=== PATIENT | male | born 1965 | race Asian ===

== ENCOUNTER → 2017-08-17 | Outpatient (CLI) | payer OTHER ==
[~2017-08-17] VITALS: Ht 177.8 cm; Wt 79.0 kg
[~2017-08-17] MED LIST: ACET-48 PO; ALBU8.5H3 IH; ATOR10TA69 PO; BECL8.7A6 IH; CARV6.2534 PO; FURO20 PO; IBUP-2070 PO; LEVE250T PO; LISI-660 PO; LISI10TA7 PO; MAGN400C PO; PHEN100C23 PO; SPIR25TA6 PO
[2017-08-17 11:34] VITALS: BP 111/84
== END | disposition home or self-care (01) ==
LOC: SRCNTR 11:32
PROVIDERS: ATTEND Internal Medicine Clinical Cardiac Electrophysiology
DX: Z45.02 Encounter for adjustment and management of automatic implantable cardiac defibrillator (principal); I11.0 Hypertensive heart disease with heart failure; I50.22 Chronic systolic (congestive) heart failure; I47.1 Supraventricular tachycardia; E78.5 Hyperlipidemia, unspecified; R56.9 Unspecified convulsions; R55 Syncope and collapse; Z88.0 Allergy status to penicillin
CPT/HCPCS: G0463

== ENCOUNTER → 2017-09-08 | Outpatient (CLI) | payer OTHER ==
[~2017-09-08] VITALS: Ht 177.8 cm; Wt 79.0 kg
[~2017-09-08] MED LIST changes: -LISI-660 PO; +SPIR25TA4 PO; -SPIR25TA6 PO
[2017-09-08 12:16] VITALS: BP 102/69
== END | disposition home or self-care (01) ==
LOC: SRCNTR 09:42
PROVIDERS: ATTEND Internal Medicine Clinical Cardiac Electrophysiology
DX: Z45.02 Encounter for adjustment and management of automatic implantable cardiac defibrillator (principal)
CPT/HCPCS: G0463

== ENCOUNTER 2017-09-10 12:16 | Inpatient (IN) | payer OTHER ==
[~2017-09-10] VITALS: Ht 177.8 cm; Wt 78.5 kg
[~2017-09-10 12:16] MED LIST changes: -LEVE250T PO; -LISI-660 PO
[2017-09-10 12:28] LABS: GLUCOSE,POINT OF CARE 166 MG/DL (70-110)
[2017-09-10] MEDS ORDERED: LEVE250T PO (12:30)
[2017-09-10] MEDS ORDERED: 0.9% SODIUM CHLORIDE 10 ML SYRINGE IVP PRN ×3 (14:15→23:00)
[2017-09-10] MEDS ORDERED: VANCOMYCIN HCL 1 GM/D5% WATER 200 ML IV ONE (14:15)
[2017-09-10] MEDS ORDERED: SODIUM CHLORIDE 0.9% 1,000 ML IV ONE (14:15)
[2017-09-10 15:11] LABS: BASOPHILS % (AUTO) 0.4 % (0.0-2.0); EOSINOPHILS % (AUTO) 2.5 % (1.0-6.0); HEMOGLOBIN 16.7 g/dL (13.5-17.5); LYMPHOCYTES # (AUTO) 2.2 K/uL (1.0-4.8); LYMPHOCYTES % (AUTO) 36.8 % (22.0-44.0); MEAN CORPUSCULAR HEMOGLOBIN 32.3 pg (26.0-34.0); MEAN CORPUSCULAR HGB CONC 34.1 G/dL (31.0-37.0); MEAN CORPUSCULAR VOLUME 95 fL (80-100); MONOCYTES # (AUTO) 0.8 K/uL (0.1-1.0); MONOCYTES % (AUTO) 13.2 % (2.0-9.0); NEUTROPHILS # (AUTO) 2.8 K/uL (1.8-7.7); NEUTROPHILS % (AUTO) 47.1 % (40.0-70.0); PLATELET COUNT (AUTO) 201 K/uL (150-450); RED BLOOD CELL COUNT(AUTO) 5.17 MIL/uL (4.50-5.90); RED CELL DISTRIBUTION WIDTH 14.4 % (11.5-14.5)
[2017-09-10 15:23] LABS: ANION GAP 9 mmol/L (8-16); CALCIUM, TOTAL 8.5 mg/dL (8.8-10.5); CARBON DIOXIDE 29 mmol/L (22-29); CHLORIDE 101 mmol/L (98-107); CREATININE 1.13 mg/dL (0.60-1.30); GLOMERULAR FILTR. RATE CALC > 60 mL/min (>60); GLUCOSE,RANDOM 93 mg/dL (70-110); SODIUM SERUM 139 mmol/L (136-145); UREA NITROGEN, BLOOD 12 mg/dL (7-18)
[2017-09-10 15:38] LABS: ALANINE AMINOTRANSFERASE 34 U/L (12-78); ALBUMIN 3.2 g/dL (3.4-5.0); ALKALINE PHOSPHATASE 62 U/L (46-116); ASPARTATE AMINOTRANSFERASE 20 U/L (15-37); BILIRUBIN,TOTAL 0.5 mg/dL (0.1-1.0); TOTAL PROTEIN, SERUM 7.7 g/dL (6.4-8.2)
[2017-09-10 15:48] LABS: LACTIC ACID 3.2 mmol/L (0.4-2.0)
[2017-09-10 15:50] LABS: APPEARANCE,URINE CLEAR (CLEAR); BILIRUBIN,URINE NEGATIVE (NEGATIVE); GLUCOSE, URINE (UA) 250 mg/dL (NEGATIVE); KETONES,URINE NEGATIVE (NEGATIVE); LEUKOCYTE ESTERASE ,URINE NEGATIVE (NEGATIVE); NITRATE,URINE NEGATIVE (NEGATIVE); OCCULT BLOOD,URINE NEGATIVE (NEGATIVE); PROTEIN,URINE NEGATIVE (NEGATIVE)
[2017-09-10 16:17] LABS: BACTERIA,URINE None Seen /HPF (None Seen); RBC,URINE None Seen /HPF (0-2); SQUAMOUS EPITHELIAL CELL,UR Rare /LPF (None Seen); WBC,URINE None Seen /HPF (0-5)
[2017-09-10] MEDS ORDERED: ACETAMINOPHEN 325 MG TABLET PO PRN (18:30)
[2017-09-10] MEDS ORDERED: ONDANSETRON HCL 4 MG/2 ML VIAL IVP PRN ×2 (18:30→23:00)
[2017-09-10 20:13] VITALS: BP 124/71
[2017-09-10] MEDS ORDERED: ZOLPIDEM TARTRATE 5 MG TABLET PO PRN (23:00)
[2017-09-10] MEDS ORDERED: IPRATROPIUM BROMIDE 0.5 MG/2.5 ML NEB SOLUTION NEB PRN (23:00)
[2017-09-10] MEDS ORDERED: IPRATROPIUM BROMIDE 0.5 MG/2.5 ML NEB SOLUTION NEB SCH (23:00)
[2017-09-10] MEDS ORDERED: ALBUTEROL SULFATE 2.5 MG/0.5 ML NEB SOLUTION NEB SCH (23:00)
[2017-09-10] MEDS ORDERED: ALBUTEROL SULFATE 2.5 MG/0.5 ML NEB SOLUTION NEB PRN (23:00)
[2017-09-10] MEDS: FUROSEMIDE 20 MG TABLET PO SCH (23:01)
[2017-09-10] MEDS: CARVEDILOL 6.25 MG TABLET PO SCH (23:01)
[2017-09-10] MEDS: LevETIRAcetam 500 MG TABLET PO SCH (23:01)
[2017-09-10 23:37] VITALS: BP 123/89
[2017-09-11] VITALS (7 sets, daily range): BP systolic 102–130; BP diastolic 67–96
[2017-09-11] MEDS ORDERED: SODIUM CHLORIDE 0.9% 250 ML IV ONE (00:02)
[2017-09-11] MEDS: VANCOMYCIN HCL 1.25 GM in DEXTROSE 5%-WATER 250 ML IV SCH ×3 (00:11→21:14)
[2017-09-11] MEDS: ALBUTEROL SULFATE 2.5 MG/0.5 ML NEB SOLUTION NEB SCH ×4 (02:00→20:19)
[2017-09-11] MEDS: IPRATROPIUM BROMIDE 0.5 MG/2.5 ML NEB SOLUTION NEB SCH ×4 (02:00→20:19)
[2017-09-11 06:20] LABS: BASOPHILS % (AUTO) 0.5 % (0.0-2.0); EOSINOPHILS % (AUTO) 2.2 % (1.0-6.0); HEMATOCRIT 48.6 % (41-53); HEMOGLOBIN 17.1 g/dL (13.5-17.5); LYMPHOCYTES # (AUTO) 2.4 K/uL (1.0-4.8); LYMPHOCYTES % (AUTO) 33.7 % (22.0-44.0); MEAN CORPUSCULAR HEMOGLOBIN 32.7 pg (26.0-34.0); MEAN CORPUSCULAR HGB CONC 35.1 G/dL (31.0-37.0); MEAN CORPUSCULAR VOLUME 93 fL (80-100); MONOCYTES # (AUTO) 0.9 K/uL (0.1-1.0); NEUTROPHILS # (AUTO) 3.7 K/uL (1.8-7.7); NEUTROPHILS % (AUTO) 51.6 % (40.0-70.0); PLATELET COUNT (AUTO) 191 K/uL (150-450); RED BLOOD CELL COUNT(AUTO) 5.22 MIL/uL (4.50-5.90); RED CELL DISTRIBUTION WIDTH 14.5 % (11.5-14.5)
[2017-09-11 06:42] LABS: ANION GAP 6 mmol/L (8-16); CALCIUM, TOTAL 8.8 mg/dL (8.8-10.5); CARBON DIOXIDE 28 mmol/L (22-29); CHLORIDE 102 mmol/L (98-107); CREATININE 1.11 mg/dL (0.60-1.30); GLOMERULAR FILTR. RATE CALC > 60 mL/min (>60); GLUCOSE,RANDOM 107 mg/dL (70-110); POTASSIUM 3.8 mmol/L (3.5-5.1); SODIUM SERUM 136 mmol/L (136-145); UREA NITROGEN, BLOOD 11 mg/dL (7-18)
[2017-09-11] MEDS: HEPARIN SODIUM,PORCINE 5,000 UNITS/ML VIAL SQ SCH ×4 (08:00→16:00)
[2017-09-11] MEDS: PANTOPRAZOLE SODIUM 40 MG/VIAL IVP SCH (08:12)
[2017-09-11] MEDS: ATORVASTATIN CALCIUM 10 MG TABLET PO SCH (08:12)
[2017-09-11] MEDS: CARVEDILOL 6.25 MG TABLET PO SCH ×2 (08:13→20:46)
[2017-09-11] MEDS: LevETIRAcetam 500 MG TABLET PO SCH ×2 (08:13→20:46)
[2017-09-11] MEDS: SPIRONOLACTONE 25 MG TABLET PO SCH (08:25)
[2017-09-11] MEDS: LISINOPRIL 10 MG TABLET PO SCH (08:25)
[2017-09-11] MEDS: FUROSEMIDE 20 MG TABLET PO SCH ×2 (08:25→20:47)
[2017-09-12] MEDS: ACETAMINOPHEN 500 MG TABLET PO PRN (00:03)
[2017-09-12] MEDS: ALBUTEROL SULFATE 2.5 MG/0.5 ML NEB SOLUTION NEB SCH ×4 (02:37→20:02)
[2017-09-12] MEDS: IPRATROPIUM BROMIDE 0.5 MG/2.5 ML NEB SOLUTION NEB SCH ×4 (02:37→20:02)
[2017-09-12 03:25] VITALS: BP 101/63
[2017-09-12 06:23] LABS: ANION GAP 8 mmol/L (8-16); CALCIUM, TOTAL 8.6 mg/dL (8.8-10.5); CARBON DIOXIDE 27 mmol/L (22-29); CHLORIDE 102 mmol/L (98-107); CREATININE 1.04 mg/dL (0.60-1.30); GLOMERULAR FILTR. RATE CALC > 60 mL/min (>60); GLUCOSE,RANDOM 116 mg/dL (70-110); POTASSIUM 3.9 mmol/L (3.5-5.1); SODIUM SERUM 137 mmol/L (136-145); UREA NITROGEN, BLOOD 10 mg/dL (7-18); VANCOMYCIN,RANDOM 19.8 mcg/mL (25.0-50.0)
[2017-09-12 07:05] VITALS: BP 103/68
[2017-09-12] MEDS: HEPARIN SODIUM,PORCINE 5,000 UNITS/ML VIAL SQ SCH ×4 (08:00→23:40)
[2017-09-12] MEDS: VANCOMYCIN HCL 1.25 GM in DEXTROSE 5%-WATER 250 ML IV SCH ×2 (09:42→20:13)
[2017-09-12] MEDS: CARVEDILOL 6.25 MG TABLET PO SCH ×2 (09:43→20:13)
[2017-09-12] MEDS: PANTOPRAZOLE SODIUM 40 MG/VIAL IVP SCH (09:43)
[2017-09-12] MEDS: LevETIRAcetam 500 MG TABLET PO SCH ×2 (09:43→20:13)
[2017-09-12] MEDS: SPIRONOLACTONE 25 MG TABLET PO SCH (09:43)
[2017-09-12] MEDS: ATORVASTATIN CALCIUM 10 MG TABLET PO SCH (09:43)
[2017-09-12] MEDS: FUROSEMIDE 20 MG TABLET PO SCH ×2 (09:43→20:13)
[2017-09-12] MEDS: LISINOPRIL 10 MG TABLET PO SCH (09:43)
[2017-09-12 11:18] VITALS: BP 116/56
[2017-09-12 15:49] VITALS: BP 115/70
[2017-09-12 19:14] VITALS: BP 123/72
[2017-09-12 23:15] VITALS: BP 106/66
[2017-09-13] MEDS: IPRATROPIUM BROMIDE 0.5 MG/2.5 ML NEB SOLUTION NEB SCH ×4 (02:00→20:00)
[2017-09-13] MEDS: ALBUTEROL SULFATE 2.5 MG/0.5 ML NEB SOLUTION NEB SCH ×4 (02:00→20:00)
[2017-09-13 05:02] VITALS: BP 106/52
[2017-09-13 08:05] LABS: BASOPHILS % (AUTO) 0.4 % (0.0-2.0); EOSINOPHILS % (AUTO) 2.1 % (1.0-6.0); HEMATOCRIT 51.2 % (41-53); HEMOGLOBIN 17.7 g/dL (13.5-17.5); LYMPHOCYTES # (AUTO) 1.8 K/uL (1.0-4.8); LYMPHOCYTES % (AUTO) 20.1 % (22.0-44.0); MEAN CORPUSCULAR HEMOGLOBIN 32.3 pg (26.0-34.0); MEAN CORPUSCULAR HGB CONC 34.5 G/dL (31.0-37.0); MEAN CORPUSCULAR VOLUME 94 fL (80-100); MONOCYTES # (AUTO) 1.1 K/uL (0.1-1.0); MONOCYTES % (AUTO) 12.3 % (2.0-9.0); NEUTROPHILS % (AUTO) 65.1 % (40.0-70.0); PLATELET COUNT (AUTO) 220 K/uL (150-450); RED BLOOD CELL COUNT(AUTO) 5.46 MIL/uL (4.50-5.90); RED CELL DISTRIBUTION WIDTH 14.2 % (11.5-14.5)
[2017-09-13 08:07] VITALS: BP 125/88
[2017-09-13 08:16] LABS: ANION GAP 4 mmol/L (8-16); CALCIUM, TOTAL 8.5 mg/dL (8.8-10.5); CARBON DIOXIDE 28 mmol/L (22-29); CHLORIDE 101 mmol/L (98-107); CREATININE 1.24 mg/dL (0.60-1.30); GLOMERULAR FILTR. RATE CALC > 60 mL/min (>60); GLUCOSE,RANDOM 118 mg/dL (70-110); POTASSIUM 4.1 mmol/L (3.5-5.1); SODIUM SERUM 133 mmol/L (136-145); UREA NITROGEN, BLOOD 14 mg/dL (7-18)
[2017-09-13] MEDS: VANCOMYCIN HCL 1.25 GM in DEXTROSE 5%-WATER 250 ML IV SCH (09:01)
[2017-09-13] MEDS: ATORVASTATIN CALCIUM 10 MG TABLET PO SCH (09:01)
[2017-09-13] MEDS: HEPARIN SODIUM,PORCINE 5,000 UNITS/ML VIAL SQ SCH ×3 (09:01→23:09)
[2017-09-13] MEDS: PANTOPRAZOLE SODIUM 40 MG/VIAL IVP SCH (09:02)
[2017-09-13] MEDS: FUROSEMIDE 20 MG TABLET PO SCH ×2 (09:02→20:40)
[2017-09-13] MEDS: LevETIRAcetam 500 MG TABLET PO SCH ×2 (09:02→20:40)
[2017-09-13] MEDS: CARVEDILOL 6.25 MG TABLET PO SCH ×2 (09:02→20:40)
[2017-09-13] MEDS: SPIRONOLACTONE 25 MG TABLET PO SCH (09:54)
[2017-09-13] MEDS: LISINOPRIL 10 MG TABLET PO SCH (09:54)
[2017-09-13] MEDS: DiphenhydrAMINE HCL 50 MG/ML VIAL IVP SCH ×3 (10:59→23:15)
[2017-09-13 11:13] VITALS: BP 119/71
[2017-09-13] MEDS ORDERED: LEVOFLOXACIN 750 MG/D5% WATER 150 ML IV SCH (12:00)
[2017-09-13] MEDS ORDERED: SODIUM CHLORIDE 0.9% 500 ML IV ONE (13:36)
[2017-09-13 15:24] VITALS: BP 122/76
[2017-09-13] MEDS: ACETAMINOPHEN 500 MG TABLET PO PRN (18:45)
[2017-09-13 19:28] VITALS: BP 107/65
[2017-09-13 20:39] LABS: GLUCOMETER DEV NAME(LOC) 5S 1M; GLUCOSE,POINT OF CARE 161 MG/DL (70-110)
[2017-09-13] MEDS ORDERED: ACETAMINOPHEN 500 MG TABLET PO PRN (21:00)
[2017-09-13] MEDS ORDERED: SODIUM CHLORIDE 0.9% 100 ML ONE (22:01)
[2017-09-13] MEDS: DAPTOMYCIN 500 MG in SODIUM CHLORIDE 0.9% 50 ML IV SCH (22:08)
[2017-09-13] MEDS: CLINDAMYCIN 900 MG/D5% WATER 50 ML IV SCH (23:15)
[2017-09-13 23:25] VITALS: BP 97/65
[2017-09-14] MEDS: ALBUTEROL SULFATE 2.5 MG/0.5 ML NEB SOLUTION NEB SCH ×4 (01:11→19:50)
[2017-09-14] MEDS: IPRATROPIUM BROMIDE 0.5 MG/2.5 ML NEB SOLUTION NEB SCH ×4 (01:11→19:50)
[2017-09-14 03:34] VITALS: BP 112/62
[2017-09-14] MEDS: CLINDAMYCIN 900 MG/D5% WATER 50 ML IV SCH ×3 (06:09→22:20)
[2017-09-14] MEDS: DiphenhydrAMINE HCL 50 MG/ML VIAL IVP SCH ×3 (06:09→18:16)
[2017-09-14 06:24] LABS: BASOPHILS % (AUTO) 0.2 % (0.0-2.0); EOSINOPHILS % (AUTO) 3.2 % (1.0-6.0); HEMATOCRIT 49.2 % (41-53); HEMOGLOBIN 16.9 g/dL (13.5-17.5); LYMPHOCYTES # (AUTO) 1.9 K/uL (1.0-4.8); LYMPHOCYTES % (AUTO) 22.9 % (22.0-44.0); MEAN CORPUSCULAR HEMOGLOBIN 32.2 pg (26.0-34.0); MEAN CORPUSCULAR HGB CONC 34.4 G/dL (31.0-37.0); MEAN CORPUSCULAR VOLUME 94 fL (80-100); MONOCYTES % (AUTO) 12.7 % (2.0-9.0); PLATELET COUNT (AUTO) 213 K/uL (150-450); RED BLOOD CELL COUNT(AUTO) 5.26 MIL/uL (4.50-5.90)
[2017-09-14 07:14] LABS: ALANINE AMINOTRANSFERASE 55 U/L (12-78); ALBUMIN 2.9 g/dL (3.4-5.0); ALKALINE PHOSPHATASE 61 U/L (46-116); ANION GAP 10 mmol/L (8-16); ASPARTATE AMINOTRANSFERASE 34 U/L (15-37); BILIRUBIN,TOTAL 0.7 mg/dL (0.1-1.0); CALCIUM, TOTAL 8.5 mg/dL (8.8-10.5); CARBON DIOXIDE 25 mmol/L (22-29); CHLORIDE 100 mmol/L (98-107); CREATINE KINASE, TOTAL 66 U/L (39-308); GLOMERULAR FILTR. RATE CALC > 60 mL/min (>60); GLUCOSE,RANDOM 112 mg/dL (70-110); POTASSIUM 3.9 mmol/L (3.5-5.1); SODIUM SERUM 135 mmol/L (136-145); TOTAL PROTEIN, SERUM 7.4 g/dL (6.4-8.2); UREA NITROGEN, BLOOD 17 mg/dL (7-18); VANCOMYCIN,RANDOM 11.3 mcg/mL (25.0-50.0)
[2017-09-14 07:40] VITALS: BP_SYST 100; BP_SYST 152; BP_DIAS 62; BP_DIAS 85
[2017-09-14] MEDS: HEPARIN SODIUM,PORCINE 5,000 UNITS/ML VIAL SQ SCH ×2 (08:00→16:07)
[2017-09-14] MEDS: PANTOPRAZOLE SODIUM 40 MG/VIAL IVP SCH (09:02)
[2017-09-14] MEDS: SPIRONOLACTONE 25 MG TABLET PO SCH (09:03)
[2017-09-14] MEDS: FUROSEMIDE 20 MG TABLET PO SCH ×2 (09:03→21:00)
[2017-09-14] MEDS: LevETIRAcetam 500 MG TABLET PO SCH ×2 (09:03→20:17)
[2017-09-14] MEDS: ATORVASTATIN CALCIUM 10 MG TABLET PO SCH (09:03)
[2017-09-14 12:14] VITALS: BP 121/75
[2017-09-14] MEDS: LISINOPRIL 10 MG TABLET PO SCH (13:38)
[2017-09-14] MEDS: CARVEDILOL 6.25 MG TABLET PO SCH ×2 (13:38→21:00)
[2017-09-14 16:02] VITALS: BP 101/61
[2017-09-14 20:02] VITALS: BP 97/55
[2017-09-14] MEDS: DAPTOMYCIN 500 MG in SODIUM CHLORIDE 0.9% 50 ML IV SCH (20:16)
[2017-09-14 23:21] VITALS: BP 89/58
[2017-09-15] MEDS: DiphenhydrAMINE HCL 50 MG/ML VIAL IVP SCH ×5 (00:07→23:57)
[2017-09-15 01:37] VITALS: BP 95/56
[2017-09-15] MEDS: ALBUTEROL SULFATE 2.5 MG/0.5 ML NEB SOLUTION NEB SCH ×4 (02:00→19:39)
[2017-09-15] MEDS: IPRATROPIUM BROMIDE 0.5 MG/2.5 ML NEB SOLUTION NEB SCH ×4 (02:00→19:39)
[2017-09-15 04:05] VITALS: BP 97/67
[2017-09-15] MEDS ORDERED: SODIUM CHLORIDE 0.9% 100 ML ONE (05:33)
[2017-09-15] MEDS: CLINDAMYCIN 900 MG/D5% WATER 50 ML IV SCH ×2 (05:41→14:36)
[2017-09-15 06:27] LABS: BASOPHILS % (AUTO) 0.3 % (0.0-2.0); EOSINOPHILS % (AUTO) 3.5 % (1.0-6.0); HEMATOCRIT 48.6 % (41-53); HEMOGLOBIN 17.1 g/dL (13.5-17.5); LYMPHOCYTES # (AUTO) 2.3 K/uL (1.0-4.8); LYMPHOCYTES % (AUTO) 26.7 % (22.0-44.0); MEAN CORPUSCULAR HEMOGLOBIN 32.7 pg (26.0-34.0); MEAN CORPUSCULAR HGB CONC 35.1 G/dL (31.0-37.0); MEAN CORPUSCULAR VOLUME 93 fL (80-100); MONOCYTES # (AUTO) 0.9 K/uL (0.1-1.0); MONOCYTES % (AUTO) 10.8 % (2.0-9.0); NEUTROPHILS % (AUTO) 58.7 % (40.0-70.0); PLATELET COUNT (AUTO) 239 K/uL (150-450); RED BLOOD CELL COUNT(AUTO) 5.22 MIL/uL (4.50-5.90); RED CELL DISTRIBUTION WIDTH 13.8 % (11.5-14.5)
[2017-09-15 07:07] LABS: ALANINE AMINOTRANSFERASE 59 U/L (12-78); ALBUMIN 2.9 g/dL (3.4-5.0); ALKALINE PHOSPHATASE 60 U/L (46-116); ANION GAP 9 mmol/L (8-16); ASPARTATE AMINOTRANSFERASE 39 U/L (15-37); BILIRUBIN,TOTAL 0.7 mg/dL (0.1-1.0); CALCIUM, TOTAL 8.3 mg/dL (8.8-10.5); CARBON DIOXIDE 27 mmol/L (22-29); CHLORIDE 100 mmol/L (98-107); CREATININE 1.17 mg/dL (0.60-1.30); GLOMERULAR FILTR. RATE CALC > 60 mL/min (>60); GLUCOSE,RANDOM 107 mg/dL (70-110); SODIUM SERUM 136 mmol/L (136-145); TOTAL PROTEIN, SERUM 7.4 g/dL (6.4-8.2); UREA NITROGEN, BLOOD 18 mg/dL (7-18)
[2017-09-15 07:37] VITALS: BP 90/60
[2017-09-15] MEDS: CARVEDILOL 6.25 MG TABLET PO SCH ×2 (08:45→20:56)
[2017-09-15] MEDS: PANTOPRAZOLE SODIUM 40 MG/VIAL IVP SCH (08:45)
[2017-09-15] MEDS: HEPARIN SODIUM,PORCINE 5,000 UNITS/ML VIAL SQ SCH ×4 (08:45→23:57)
[2017-09-15] MEDS: LevETIRAcetam 500 MG TABLET PO SCH ×2 (08:46→20:56)
[2017-09-15] MEDS: LISINOPRIL 10 MG TABLET PO SCH (08:46)
[2017-09-15] MEDS: FUROSEMIDE 20 MG TABLET PO SCH ×2 (09:00→20:56)
[2017-09-15] MEDS: SPIRONOLACTONE 25 MG TABLET PO SCH (09:00)
[2017-09-15] MEDS: ATORVASTATIN CALCIUM 10 MG TABLET PO SCH (11:27)
[2017-09-15 11:41] VITALS: BP 91/58
[2017-09-15 16:20] LABS: AMPHET/METH SCREEN,URINE NEGATIVE (NEGATIVE); BARBITURATE SCREEN, URINE NEGATIVE (NEGATIVE); BENZODIAZEPINES SCREEN,URINE NEGATIVE (NEGATIVE); CANNABINOID SCREEN,URINE NEGATIVE (NEGATIVE); COCAINE SCREEN,URINE NEGATIVE (NEGATIVE); METHADONE SCREEN, URINE NEGATIVE (NEGATIVE); OPIATE SCREEN,URINE NEGATIVE (NEGATIVE)
[2017-09-15 16:21] LABS: PHENCYCLIDINE SCREEN,URINE NEGATIVE (NEGATIVE)
[2017-09-15 16:40] VITALS: BP 94/58
[2017-09-15 19:22] VITALS: BP 103/70
[2017-09-15] MEDS: DAPTOMYCIN 500 MG in SODIUM CHLORIDE 0.9% 50 ML IV SCH (20:56)
[2017-09-16] VITALS (7 sets, daily range): BP systolic 100–118; BP diastolic 58–77
[2017-09-16] MEDS: ALBUTEROL SULFATE 2.5 MG/0.5 ML NEB SOLUTION NEB SCH ×4 (02:00→20:00)
[2017-09-16] MEDS: IPRATROPIUM BROMIDE 0.5 MG/2.5 ML NEB SOLUTION NEB SCH ×4 (02:00→20:00)
[2017-09-16] MEDS: DiphenhydrAMINE HCL 50 MG/ML VIAL IVP SCH ×3 (05:50→18:00)
[2017-09-16 07:45] LABS: BASOPHILS % (AUTO) 0.3 % (0.0-2.0); EOSINOPHILS % (AUTO) 4.3 % (1.0-6.0); HEMATOCRIT 48.8 % (41-53); HEMOGLOBIN 17.1 g/dL (13.5-17.5); LYMPHOCYTES # (AUTO) 1.8 K/uL (1.0-4.8); MEAN CORPUSCULAR HEMOGLOBIN 32.7 pg (26.0-34.0); MEAN CORPUSCULAR VOLUME 93 fL (80-100); MONOCYTES # (AUTO) 0.7 K/uL (0.1-1.0); MONOCYTES % (AUTO) 8.6 % (2.0-9.0); NEUTROPHILS # (AUTO) 5.1 K/uL (1.8-7.7); NEUTROPHILS % (AUTO) 63.8 % (40.0-70.0); PLATELET COUNT (AUTO) 258 K/uL (150-450); RED BLOOD CELL COUNT(AUTO) 5.23 MIL/uL (4.50-5.90)
[2017-09-16 07:47] LABS: ALANINE AMINOTRANSFERASE 64 U/L (12-78); ALKALINE PHOSPHATASE 70 U/L (46-116); ANION GAP 8 mmol/L (8-16); ASPARTATE AMINOTRANSFERASE 40 U/L (15-37); BILIRUBIN,TOTAL 0.7 mg/dL (0.1-1.0); CALCIUM, TOTAL 8.5 mg/dL (8.8-10.5); CARBON DIOXIDE 26 mmol/L (22-29); CHLORIDE 101 mmol/L (98-107); CREATININE 1.15 mg/dL (0.60-1.30); GLOMERULAR FILTR. RATE CALC > 60 mL/min (>60); GLUCOSE,RANDOM 110 mg/dL (70-110); POTASSIUM 4.1 mmol/L (3.5-5.1); SODIUM SERUM 135 mmol/L (136-145); TOTAL PROTEIN, SERUM 7.6 g/dL (6.4-8.2); UREA NITROGEN, BLOOD 17 mg/dL (7-18)
[2017-09-16] MEDS: HEPARIN SODIUM,PORCINE 5,000 UNITS/ML VIAL SQ SCH ×3 (08:00→16:00)
[2017-09-16] MEDS: PANTOPRAZOLE SODIUM 40 MG/VIAL IVP SCH (09:14)
[2017-09-16] MEDS: ATORVASTATIN CALCIUM 10 MG TABLET PO SCH (09:14)
[2017-09-16] MEDS: FUROSEMIDE 20 MG TABLET PO SCH ×2 (09:14→21:16)
[2017-09-16] MEDS: CARVEDILOL 6.25 MG TABLET PO SCH ×2 (09:14→21:16)
[2017-09-16] MEDS: LevETIRAcetam 500 MG TABLET PO SCH ×2 (09:14→21:16)
[2017-09-16] MEDS: LISINOPRIL 5 MG TABLET PO SCH (09:14)
[2017-09-16] MEDS: SPIRONOLACTONE 25 MG TABLET PO SCH (09:14)
[2017-09-16] MEDS: CLOBETASOL 0.05% 15 GM OINTMENT TP SCH (21:16)
[2017-09-17] VITALS (8 sets, daily range): BP systolic 94–112; BP diastolic 58–73
[2017-09-17] MEDS: IPRATROPIUM BROMIDE 0.5 MG/2.5 ML NEB SOLUTION NEB SCH ×4 (02:00→20:00)
[2017-09-17] MEDS: ALBUTEROL SULFATE 2.5 MG/0.5 ML NEB SOLUTION NEB SCH ×4 (02:00→20:00)
[2017-09-17] MEDS: DiphenhydrAMINE HCL 50 MG/ML VIAL IVP SCH ×2 (05:33)
[2017-09-17] MEDS: HEPARIN SODIUM,PORCINE 5,000 UNITS/ML VIAL SQ SCH ×2 (08:00)
[2017-09-17] MEDS: FUROSEMIDE 20 MG TABLET PO SCH ×2 (08:03→20:19)
[2017-09-17] MEDS: ATORVASTATIN CALCIUM 10 MG TABLET PO SCH (08:03)
[2017-09-17] MEDS: LevETIRAcetam 500 MG TABLET PO SCH ×2 (08:04→20:19)
[2017-09-17] MEDS: LISINOPRIL 5 MG TABLET PO SCH (08:04)
[2017-09-17] MEDS: CARVEDILOL 6.25 MG TABLET PO SCH ×2 (08:04→20:19)
[2017-09-17] MEDS: CLOBETASOL 0.05% 15 GM OINTMENT TP SCH ×3 (08:04→20:19)
[2017-09-17] MEDS: SPIRONOLACTONE 25 MG TABLET PO SCH (08:06)
[2017-09-17] MEDS: PANTOPRAZOLE SODIUM 40 MG/VIAL IVP SCH (08:06)
[2017-09-17] MEDS ORDERED: DiphenhydrAMINE HCL 25 MG CAPSULE PO PRN (11:15)
[2017-09-18] MEDS: ALBUTEROL SULFATE 2.5 MG/0.5 ML NEB SOLUTION NEB SCH ×2 (02:00→08:00)
[2017-09-18] MEDS: IPRATROPIUM BROMIDE 0.5 MG/2.5 ML NEB SOLUTION NEB SCH ×2 (02:00→08:00)
[2017-09-18 05:26] VITALS: BP 101/68
[2017-09-18 08:00] VITALS: BP 107/72
[2017-09-18] MEDS: ATORVASTATIN CALCIUM 10 MG TABLET PO SCH (09:01)
[2017-09-18] MEDS: PANTOPRAZOLE SODIUM 40 MG/VIAL IVP SCH (09:01)
[2017-09-18] MEDS: LevETIRAcetam 500 MG TABLET PO SCH (09:01)
[2017-09-18] MEDS: FUROSEMIDE 20 MG TABLET PO SCH (09:02)
[2017-09-18] MEDS: CLOBETASOL 0.05% 15 GM OINTMENT TP SCH (09:02)
[2017-09-18] MEDS: CARVEDILOL 6.25 MG TABLET PO SCH (09:32)
[2017-09-18] MEDS: SPIRONOLACTONE 25 MG TABLET PO SCH (09:32)
[2017-09-18] MEDS: LISINOPRIL 5 MG TABLET PO SCH (09:32)
[2017-09-18 09:34] VITALS: BP 113/80
[2017-09-18 11:11] VITALS: BP 100/70
[2017-09-18] MEDS ORDERED: LISI-660 PO (13:44)
== END 2017-09-18 14:20 | disposition home or self-care (01) | DRG 206 ==
LOC: EMS 12:19 → 5S 18:39 → 6N 18:40 → UNDOADMIN 18:40 → 5N 09-11 08:17
PROVIDERS: ADMIT Internal Medicine; ATTEND Internal Medicine
DX: T82.7XXA Infection and inflammatory reaction due to other cardiac and vascular devices, implants and grafts, initial encounter (principal); I42.0 Dilated cardiomyopathy; I11.0 Hypertensive heart disease with heart failure; I50.20 Unspecified systolic (congestive) heart failure; L03.313 Cellulitis of chest wall; Y84.9 Medical procedure, unspecified as the cause of abnormal reaction of the patient, or of later complication, without mention of misadventure at the time of the procedure; E78.00 Pure hypercholesterolemia, unspecified; E78.5 Hyperlipidemia, unspecified; J44.9 Chronic obstructive pulmonary disease, unspecified; E11.9 Type 2 diabetes mellitus without complications; F19.10 Other psychoactive substance abuse, uncomplicated; R21 Rash and other nonspecific skin eruption; L27.0 Generalized skin eruption due to drugs and medicaments taken internally; F17.210 Nicotine dependence, cigarettes, uncomplicated; T36.8X5A Adverse effect of other systemic antibiotics, initial encounter; Z95.810 Presence of automatic (implantable) cardiac defibrillator; Z88.0 Allergy status to penicillin; Z88.1 Allergy status to other antibiotic agents; Z79.899 Other long term (current) drug therapy; Z83.3 Family history of diabetes mellitus; Z82.49 Family history of ischemic heart disease and other diseases of the circulatory system
CPT/HCPCS: 76604; 80307; 83605; 83735; 84145; 85651; 86140; 87040; 87070; 87081; 87205; 93005; 94640; 96365; 99285; C9113; J0878; J1200; J1644; J1956; J3370; J3490; J7030; J7040; J7050; J7060

== ENCOUNTER → 2017-09-10 | Outpatient (CLI) | payer OTHER ==
[~2017-09-10] VITALS: Ht 177.8 cm; Wt 79.0 kg
[~2017-09-10] MED LIST changes: +LISI-660 PO; -SPIR25TA4 PO; +SPIR25TA6 PO
[2017-09-10 11:00] VITALS: BP 106/76
== END | disposition home or self-care (01) ==
LOC: SRCNTR 10:52
PROVIDERS: ATTEND Internal Medicine Clinical Cardiac Electrophysiology
DX: Z45.02 Encounter for adjustment and management of automatic implantable cardiac defibrillator (principal); I50.9 Heart failure, unspecified; I42.9 Cardiomyopathy, unspecified; F15.10 Other stimulant abuse, uncomplicated; Z88.0 Allergy status to penicillin
CPT/HCPCS: G0463

== ENCOUNTER → 2017-09-21 | Outpatient (CLI) | payer OTHER ==
[~2017-09-21] VITALS: Ht 177.8 cm; Wt 79.5 kg
[~2017-09-21] MED LIST changes: +LEVE250T PO; +LISI-660 PO
[2017-09-21 09:59] VITALS: BP 101/60
== END | disposition home or self-care (01) ==
LOC: SRCNTR 09:52
PROVIDERS: ATTEND Internal Medicine Clinical Cardiac Electrophysiology
DX: Z45.02 Encounter for adjustment and management of automatic implantable cardiac defibrillator (principal)
CPT/HCPCS: G0463

== ENCOUNTER 2022-02-08 11:42 | Emergency (ER) | payer MEDICARE, MEDICAID ==
[~2022-02-08] VITALS: Ht 177.8 cm; Wt 79.5 kg
[~2022-02-08 11:42] MED LIST changes: -ACET-48 PO; +ACET325T51 PO; -ALBU8.5H3 IH; +ALBU8HFA IH; +ASPI-1444 PO; -ATOR10TA69 PO; +ATOR40TA28 PO; -BECL8.7A6 IH; +CARV6 PO; -CARV6.2534 PO; +CHOL500013 PO; +DOCU-350 PO; +FLUT1AER IH; -IBUP-2070 PO; +ISON300T17 PO; -LEVE250T PO; +LEVE500T20 PO; -LISI-660 PO; -LISI10TA7 PO; -MAGN400C PO; +MAGN400T57 PO; +METF-1211 PO; -PHEN100C23 PO; +PSYL426P4 PO; +PYRI-6 PO; +SACU1TAB PO; -SPIR25TA6 PO; +TAMS-13 PO; +VERI5TAB PO
[2022-02-08] MEDS ORDERED: LIDOCAINE 1%/EPI 1:200,000/PF 30 ML VIAL SQ ONE (13:00)
[2022-02-08 13:52] VITALS: BP 98/60
== END 2022-02-08 13:55 | disposition home or self-care (01) ==
LOC: EMS 11:50
DX: S61.511A Laceration without foreign body of right wrist, initial encounter (principal); J40 Bronchitis, not specified as acute or chronic; I11.0 Hypertensive heart disease with heart failure; F17.210 Nicotine dependence, cigarettes, uncomplicated; Z98.890 Other specified postprocedural states; Z88.0 Allergy status to penicillin; W25.XXXA Contact with sharp glass, initial encounter; Y93.89 Activity, other specified; Y92.89 Other specified places as the place of occurrence of the external cause; Y99.8 Other external cause status
CPT/HCPCS: 99282; 12005; J3490

== ENCOUNTER 2022-02-23 13:22 | Emergency (ER) | payer MEDICARE, MEDICAID ==
[~2022-02-23] VITALS: Ht 177.8 cm; Wt 79.5 kg
[2022-02-23 16:29] VITALS: BP 100/60
== END 2022-02-23 16:44 | disposition home or self-care (01) ==
LOC: EMS 13:25
DX: S60.9 Unspecified superficial injury of wrist, hand and fingers (principal); I11.0 Hypertensive heart disease with heart failure; I50.9 Heart failure, unspecified; F17.210 Nicotine dependence, cigarettes, uncomplicated; Z48.02 Encounter for removal of sutures; Z88.0 Allergy status to penicillin; Z88.8 Allergy status to other drugs, medicaments and biological substances; X58.XXXD Exposure to other specified factors, subsequent encounter
CPT/HCPCS: 99281; Z7502